=== PATIENT | female | born 1950 | race Two or more races ===

== ENCOUNTER 2017-12-23 11:32 | Day surgery (SDC) | payer BC ==
[~2017-12-23 11:32] MED LIST: CHONDR SU A NA/HYALUR INTRAOC KIT (SURGICARE) ONE; EPINEPHRINE INJ/PF 1 MG/1 ML AMPULE ONE; KETOROLAC TROMETHAMINE 0.45% 4 DROP/0.4 ML DROPERETTE OS PRN; LIDOCAINE 1% INJ-PF (10 MG/ML) 30 ML SDV ONE
[2017-12-23] MEDS: TROPICAMIDE 1% OPH SOLN 3 ML OS PRN ×3 (11:44→12:04)
[2017-12-23] MEDS: CYCLOPENTOLATE 0.2%/PHENYLEPHRINE 1% OPH SOLN 2 ML OS PRN ×3 (11:44→12:04)
[2017-12-23] MEDS: BESIFLOXACIN HCL 0.6% OPH SUSP 5 ML BOTTLE OS PRN ×4 (11:45→12:38)
[2017-12-23] MEDS: TETRACAINE HCL 0.5% OPH SOLN 0.6 ML DROPERETTE OS PRN ×3 (11:46→12:18)
[2017-12-23] MEDS ORDERED: MIDAZOLAM 2 MG/2 ML INJ ONE (11:53)
[2017-12-23] MEDS ORDERED: FENTANYL CITRATE INJ/PF 100 MCG/2 ML AMPUL ONE (11:53)
[2017-12-23] MEDS: TOBRAMYCIN SULFATE/DEXAMETH OPH OINTMENT 3.5 GM ONE ×2 (12:38)
== END 2017-12-23 13:25 | disposition home or self-care (01) ==
LOC: SC 11:32
PROVIDERS: ATTEND Ophthalmology
DX: H25.12 Age-related nuclear cataract, left eye (principal); I10 Essential (primary) hypertension; E78.00 Pure hypercholesterolemia, unspecified; E03.9 Hypothyroidism, unspecified; Z79.899 Other long term (current) drug therapy; Z88.0 Allergy status to penicillin; H40.1122 Primary open-angle glaucoma, left eye, moderate stage
CPT/HCPCS: 0191T; 66984; 142; C1783; J0171; J2250; J3010; J3490; V2630